=== PATIENT | male | born 1955 | race Hispanic/Latino ===

== ENCOUNTER → 2017-04-14 | Outpatient (CLI) | payer OTHER ==
[~2017-04-14] MED LIST: REGADENOSON 0.4 MG/5 ML PF SYG IVP SCH
== END | disposition home or self-care (01) ==
LOC: SHCH 09:33
PROVIDERS: ATTEND Internal Medicine Cardiovascular Disease
DX: I25.10 Atherosclerotic heart disease of native coronary artery without angina pectoris (principal); I10 Essential (primary) hypertension
CPT/HCPCS: 78452; 93017; 96374; A9500 ×2; J2785

== ENCOUNTER → 2020-06-12 | Outpatient (CLI) | payer MEDICARE | END | disposition home or self-care (01) | LOC: SHCH 13:30 | PROVIDERS: ATTEND Internal Medicine Cardiovascular Disease | DX: I87.2 Venous insufficiency (chronic) (peripheral) (principal) | CPT/HCPCS: 93970 ==

== ENCOUNTER → 2021-06-11 | Outpatient (CLI) | payer MEDICARE | END | disposition home or self-care (01) | LOC: SHCH 08:21 | PROVIDERS: ATTEND Internal Medicine Cardiovascular Disease | DX: I25.709 Atherosclerosis of coronary artery bypass graft(s), unspecified, with unspecified angina pectoris (principal) | CPT/HCPCS: 78452; 93017; 96374; A9500 ×2; J2785 ==

== ENCOUNTER → 2022-04-16 | Outpatient (CLI) | payer MEDICARE ==
[2022-04-16 16:44] LABS: ALBUMIN 3.7 g/dL (3.5-5.0); TOTAL PROTEIN, SERUM 7.3 g/dL (6.0-8.3)
== END | disposition home or self-care (01) ==
LOC: LAB 13:54
PROVIDERS: ATTEND Physician Assistant
DX: I10 Essential (primary) hypertension (principal)
CPT/HCPCS: 36415; 80053

== ENCOUNTER → 2022-05-08 | Outpatient (CLI) | payer MEDICARE ==
[~2022-05-08] MED LIST changes: +IOHEXOL 350 MG/ML 100ML INFUS..BTL IV ONE; +METOPROLOL TARTRATE 1 MG/ML 5ML VIAL IV ONE; -REGADENOSON 0.4 MG/5 ML PF SYG IVP SCH
== END | disposition home or self-care (01) ==
LOC: RAH 10:26
PROVIDERS: ATTEND Internal Medicine Cardiovascular Disease
DX: I25.810 Atherosclerosis of coronary artery bypass graft(s) without angina pectoris (principal)
CPT/HCPCS: 75574; J3490; Q9967

== ENCOUNTER 2024-12-28 18:37 | Observation (INO) | payer MEDICARE ==
[~2024-12-28] VITALS: Ht 185.4 cm; Wt 110.7 kg
--- NOTE | 2024-12-28 19:05 | ERN ---
ED Note History of Present Illness Stated Complaint: SENT BY PCP Chief Complaint: Shortness of Breath Time Seen by MD: 18:42 Time Seen by Midlevel: 18:42 Dictation: The patient is a 69-year-old male with a history of arthritis, CABG, diabetes, CVA on Eliquis who presents to the emergency department for evaluation of atrial fibrillation with a RVR. Patient was seeing his primary doctor today for shortness of breath that has been going on for three days and nausea. Patient reports shortness of breath is worse with ambulation. Patient also reports abdominal bloating and constipation. He had last bowel movement today. Reports chills. Patient otherwise denies cough denies fevers. Allergies: Coded Allergies: Penicillins (Verified Allergy, 02/21/13) Past Medical History Past Medical History: Arthritis, Diabetes-Type II, High Cholesterol, Heart Disease, Hypertension, Kidney Stone Surgical History: CABG RN Note Reviewed/Agreed w/PFSH: Yes Review of System Dictation Constitutional: Negative for fever,chills, and weight loss Eyes: Negative for injury, pain,redness, and discharge ENT: Negative for injury,pain or swelling Cardiovascular: Negative for chest pain, palpitations, and edema Respiratory: Negative for cough, and wheezing, positive for shortness of breath Abdomen/GI: Negative for abdominal pain, vomiting, diarrhea, and constipation positive for nausea. Back: Negative for injury and pain : Negative for injury, bleeding and discharge MS/Extremity: Negative for injury and deformity Skin: Negative for rash, and discoloration Neuro: Negative for headache, weakness, numbness, tingling, and seizure Psych: Negative for suicide ideation, homicidal ideation, and hallucinations Initial Vital Sign VS Vital Signs Date Time Temp Pulse Resp B/P (MAP) Pulse Ox O2 Delivery O2 Flow Rate FiO2 12/28/24 18:40 97.5 90 18 159/86 97 Room Air 0 Physical Exam Dictation Vital Signs reviewed General Appearance: Alert, oriented x 3, mildly distress, well developed, nourished. Head and Face: non-traumatic. Eyes: PERRL, pink conjunctivas, eyelid no trauma, anterior chamber with arcus senilis. Ears: Pinnas intact and no signs of trauma or erythema ear canals clear and no discharge TM no erythema Nose: No discharge, no bleeding. Oropharynx: Mouth normal, tongue pink. pharynx clear,no erythema, tonsils no exudates, no abscesses noted, mucous membrane moist Neck: Supple, non-tender, no thyromegaly, no masses, no JVD, no bruits Breast:Deferred Chest:No tenderness, no crepitus, no paradoxical movement, no retractions Lungs:Clear, well-ventilated, symmetric, no rales, no wheezing, no rhonchi, no stridor, good breath sounds bilaterally Heart: Regular rate, regular rhythm, no murmur, no gallops Vascular: no peripheral edema, Abdomen: Soft, positive bowel sounds, nondistended, no guarding, nontender, no rebound, no masses no hepatomegaly, no splenomegaly, no Solares's sign, no hernias. Rectal: Deferred Genital: Deferred Neurological: Normal speech, motor function intact, sensory function intact Musculoskeletal: Neck nontender, full range of motion, back nontender, full range of motion, Extremities: nontender, full range of motion Skin: Color pink, dry, no turgor, no rash, no lacerations, no abrasions, no contusions. Lymphatic: Deferred Results (Laboratory/Radiology) Laboratory/Radiology Laboratory Tests Test 12/28/24 19:45 12/28/24 21:00 12/28/24 21:10 White Blood Count 8.6 K/uL (4.8-10.8) Red Blood Count 4.62 MIL/uL (4.50-6.20) Hemoglobin 13.2 g/dL (14.0-18.0) L Hematocrit 40.4 % (42-54) L Mean Corpuscular Volume 87.4 fL (79-99) Mean Corpuscular Hemoglobin 28.6 pg (27.0-33.0) Mean Corpuscular Hemoglobin Concent 32.7 g/dL (32.0-36.0) Red Cell Distribution Width 13.5 % (11.0-15.5) Platelet Count 276 K/uL (130-400) Mean Platelet Volume 9.6 fL (7.5-10.5) Immature Granulocyte % (Auto) 0.5 % (0-1) Neutrophils (%) (Auto) 62.2 % (40.0-77.0) Lymphocytes (%) (Auto) 26.3 % (21.0-51.0) Monocytes (%) (Auto) 8.2 % (3.0-13.0) Eosinophils (%) (Auto) 2.0 % (0.0-8.0) Basophils (%) (Auto) 0.8 % (0.0-5.0) Neutrophils # (Auto) 5.3 K/uL (1.8-7.7) Lymphocytes # (Auto) 2.3 K/uL (1.0-4.8) Monocytes # (Auto) 0.7 K/uL (0.1-1.0) Eosinophils # (Auto) 0.17 K/uL (0.00-0.70) Basophils # (Auto) 0.07 K/uL (0.00-0.20) Absolute Immature Granulocyte (auto 0.04 K/uL (0-1) Nucleated Red Blood Cells 0.0 % (0.0-0.19) Prothrombin Time 10.9 SEC (9.6-11.6) Prothromb Time International Ratio 1.03 (0.85-1.15) Activated Partial Thromboplast Time 31.6 SEC (26.3-35.5) Sodium Level 141 mmol/L (136-145) Potassium Level 4.3 mmol/L (3.5-5.1) Chloride Level 102 mmol/L (101-111) Carbon Dioxide Level 27 mmol/L (21-32) Blood Urea Nitrogen 34 mg/dL (7-18) H Creatinine 1.3 mg/dL (0.5-1.3) Glomerular Filtration Rate Calc 59 mL/min (>90) Random Glucose 243 mg/dL (70-105) H Total Calcium 8.7 mg/dL (8.5-10.1) Magnesium Level 1.90 mg/dL (1.80-2.40) Total Creatine Kinase 65 U/L (21-232) Troponin I High Sensitivity 11 ng/L (4-75) B-Type Natriuretic Peptide 89 pg/mL (0-100) Lipase 18 U/L (16-77) Influenza Type A Antigen Negative For Type A Influenza Type B Antigen Negative For Type B SARS-CoV-2 Antigen (Rapid) PRESUMPTIVE NEGATIVE Urine Color LIGHT-YELLOW (YELLOW) Urine Appearance CLEAR (CLEAR) Urine pH 5.5 (5.0-8.0) Urine Specific [place] 1.023 (1.001-1.031) Urine Protein 10 mg/dL (NEGATIVE) H Urine Glucose (UA) >=1000 mg/dL (NEGATIVE) H Urine Ketones NEGATIVE mg/dL (NEGATIVE) Urine Occult Blood NEGATIVE (NEGATIVE) Urine Nitrate NEGATIVE (NEGATIVE) Urine Bilirubin NEGATIVE mg/dL (NEGATIVE) Urine Urobilinogen 0.2 mg/dL (0.2-1.0) Urine Leukocyte Esterase NEGATIVE Hailey/uL Urine RBC 0-1 /HPF (0-1) Urine WBC 2-5 /HPF (0-1) H Urine Bacteria RARE /HPF (None Seen) PATIENT: NAYELI AVILEZ MR#: [id number] : 1955 SEX: M AGE: 69 LOCATION: [facility] ORDER 190 STATUS: [facility] REPORT#: [id number] SERVICE 53 REASON: sob ORDERING PHYSICIAN: NEELAM COLUNGA [employer] PROCEDURE: CXR1VW - CHEST 1VW EXAM: CR Chest, 1 view CLINICAL HISTORY: Shortness of breath. COMPARISON: None provided. FINDINGS: Mild cardiomegaly. Status poststernotomy. No focal consolidation, effusion, or pneumothorax. Mild atherosclerotic aorta. No acute osseous abnormality. IMPRESSION: Mild cardiomegaly. Status poststernotomy. No focal consolidation, effusion, or pneumothorax. /[place] REASON: sob ORDERING PHYSICIAN: NEELAM COLUNGA COUN[employer]ER PROCEDURE: ABD 1VW - ABD 1VW EXAM: CR Abdomen, 2 views. CLINICAL HISTORY: Shortness of breath. COMPARISON: None provided. FINDINGS: Nonobstructed nonspecific bowel gas pattern. Moderate constipation. No free air evident. No abnormal calcification. No aggressive appearing osseous lesion. IMPRESSION: No acute process. Moderate constipation. /[place] Labs Reviewed?: Yes EKG: (+) rhythm (Patient's rhythm) EKG Comment: Date:12/28/2024 Time:1845 Ventricular rate:94 IA interval:202 QRS duration:105 QT/QTc:356/444 EKG interpretation: Sinus rhythm Reviewed by ED Attending no STEMI ED Course ED Course Orders Procedure Category Date Status Time 12 Lead Ekg Tracing- EKG 12/28/24 Logged Technical 18:45 Cbc With Differential LAB 12/28/24 Complete 18:54 Chest 1vw RAD 12/28/24 Resulted 18:54 Magnesium LAB 12/28/24 Complete 18:54 Creatine Kinase, Total LAB 12/28/24 Complete 18:54 Troponin I High LAB 12/28/24 Complete Sensitivity 18:54 Basic Metabolic Panel LAB 12/28/24 Complete 18:54 Lipase LAB 12/28/24 Complete 18:54 B-Type Natriuretic LAB 12/28/24 Complete Peptide 18:54 Abd 1vw RAD 12/28/24 Resulted 18:54 Covid19 (Sars Antigen LAB 12/28/24 Complete Rapid) 18:54 Influenza Type A & B, LAB 12/28/24 Complete Rapid 18:54 Pt And Ptt LAB 12/28/24 Complete 18:54 Urinalysis Profile LAB 12/28/24 Complete 19:03 Edm Admit Bridge Order ADM 12/28/24 Transmitted 22:24 Acetaminophen 325 Tab PHA 12/29/24 Logged (Tylenol 325mg Tab 00:00 Current Medications Medications (Trade) Dose Ordered Sig/Jean Route PRN Reason Start Time Stop Time Status Last Admin Dose Admin Acetaminophen (TYLenol 325MG TAB) 650 mg ONCE ONCE PO 12/29/24 00:00 12/29/24 00:01 UNV Vital Signs Date Time Temp Pulse Resp B/P (MAP) Pulse Ox O2 Delivery O2 Flow Rate FiO2 12/28/24 18:40 97.5 90 18 159/86 97 Room Air 0 Medical Decision Making MDM MDM: The patient is a 69-year-old male with a history of arthritis, CABG, diabetes, CVA on Eliquis who presents to the emergency department for evaluation of atrial fibrillation with a RVR. Patient was seeing his primary doctor today for shortness of breath that has been going on for three days and nausea. Patient reports shortness of breath is worse with ambulation. Patient also reports abdominal bloating and constipation. He had last bowel movement today. Reports chills. Patient otherwise denies cough denies fevers. CBC showed no leukocytosis, mild normocytic anemia, chemistry showed elevated blood glucose, negative troponin, negative BNP, negative lipase EKG here showed sinus rhythm but patient had an EKG brought in from primary doctor where he was seen to be in AFib RVR at a rate of 128 for this reason we will admit patient for further evaluation and management. Differential diagnosis: Tachyarrhythmia, dehydration, ACS, pneumonia, URI Comorbidities: CAD, CVA, arthritis, diabetes, hyperlipidemia, cholecystectomy Tests considered and not ordered secondary to shared decision making include: none Previous outside records reviewed: none Risk of complication and/or morbidity or mortality of patient management: The patient meets criteria for admission. Need for emergency major/minor surgery: No There are no social concerns with this patient. I independently interpreted the tests I ordered (labs, urinalysis, etc.). I discussed the case with the hospitalist for admission. Mariama JOSUÉ who accepts admission I discussed the case with the following specialists: none. Historian: [email or web address]. I independently interpreted imaging studies and EKGs that I ordered (US, CT, XR, EKG, etc.). External chart review: none. Medical management and examination interpretation discussions were had by me with other qualified healthcare professionals as indicated for the patient's care. DX & DISP Disposition: Inpatient Decision to Admit Date: Dec 28, 2024 Decision to Admit Time: 22:29 Departure Impression: Primary Impression: Paroxysmal A-fib Additional Impressions: Dyspnea on exertion, Uncontrolled diabetes mellitus, Constipation Condition: Stable Referrals: NELL OVERTON (PCP) I have reviewed the case, and I agree with, Diagnosis and Plan NEELAM COLUNGA Dec 28, 2024 19:05
[2024-12-28 19:59] LABS: IMMATURE GRANULOCYTE ABSOLUTE 0.04 K/uL (0-1); NUCLEATED RED BLOOD CELLS 0.0 % (0.0-0.19); PLATELET COUNT (AUTO) 276 K/uL (130-400); RED BLOOD CELL COUNT(AUTO) 4.62 MIL/uL (4.50-6.20); RED CELL DISTRIBUTION WIDTH 13.5 % (11.0-15.5); WHITE BLOOD COUNT (AUTO) 8.6 K/uL (4.8-10.8)
[2024-12-28 20:07] LABS: CREATININE 1.3 mg/dL (0.5-1.3); GLOMERULAR FILTR. RATE CALC 59.0 mL/min (>90); GLUCOSE,RANDOM 243.0 mg/dL (70-105); SODIUM SERUM 141.0 mmol/L (136-145); UREA NITROGEN, BLOOD 34.0 mg/dL (7-18)
[2024-12-28 20:09] LABS: INR 1.03 (0.85-1.15)
[2024-12-28 20:12] LABS: CREATINE KINASE, TOTAL 65.0 U/L (21-232)
[2024-12-28 21:21] LABS: COVID19 (SARS ANTIGEN RAPID) PRESUMPTIVE NEGATIVE (NEGATIVE); INFLUENZA TYPE A Negative For Type A (NEGATIVE); INFLUENZA TYPE B Negative For Type B (NEGATIVE)
[2024-12-28 21:22] LABS: APPEARANCE,URINE CLEAR (CLEAR); GLUCOSE, URINE (UA) >=1000 mg/dL (NEGATIVE); LEUKOCYTE ESTERASE ,URINE NEGATIVE Leu/uL (NEGATIVE); NITRATE,URINE NEGATIVE (NEGATIVE); OCCULT BLOOD,URINE NEGATIVE (NEGATIVE)
[2024-12-28 21:23] LABS: ADD UA MICROSCOPIC YES
--- NOTE | 2024-12-28 23:32 | HP ---
[facility] Date of Service: Dec 28, 2024 Time of Service: 23:32 PCP: Justin Zabala HISTORY OF PRESENT ILLNESS: This is a 69-year-old male with past medical history of atrial fibrillation on Eliquis, arthritis, coronary artery disease with CABG x5, hypertension, CVA, diabetes, hyperlipidemia and obstructive sleep apnea non compliant with CPAP therapy who presented to the ED for evaluation of atrial fibrillation with RVR HR 133 at the clinic.As per patient he was seen by his PCP todayfor shortness of breath and an EKG was done and was found out that HR was 133 and was advised to come tot he ED for evaluation.Patient reports he has been short of breath for the past 3 days and he also attended physical therapy and he gets short of breath easily on minimal exertion,and he feels his hands are swollen and feet are also swollen.Patient also reports of having constipation and his last bowel movement is today. Seen and examined patient in the ER awake,alert and coherent.Patient denies fever,chills,cough,chest pain,palpitation,nausea and vomiting. Latest vital signs temperature 98.1, heart rate 70, blood pressure 188/95 saturation 98% on room air. Labs: Hemoglobin 13, hematocrit 40 platelet count 276. BUN 34, creatinine 1.3, GFR 59 glucose 243 troponin 11 lipase 18 BNP 89. Influenza type a and B negative SARS COVID negative. ECG result revealed sinus rhythm heart rate 94. Chest x-ray result revealed mild cardiomegaly. Status post sternotomy. No focal consolidation, effusion or pneumothorax. While in the ER patient received Tylenol 650 mg p.o.. ER called and recommended to admit the patient. REVIEW OF SYSTEMS CONSTITUTIONAL: Denies fevers, chills, or night sweats. No unintentional weight loss reported. NEUROLOGICAL: Denies headache, amaurosis fugax, motor weakness, sensory deficit, vertigo/spinning sensation, gait abnormalities, or tremors. ENT: No hearing loss, otalgia, otorrhea, rhinitis, rhinorrhea, hoarseness, or sore throat. CARDIOVASCULAR: Complaints of dyspnea on exertion Denies any exertional angina orthopnea, paroxysmal nocturnal dyspnea, palpitations, life-threatening arrhythmias, claudication. PULMONARY: Complains of shortness of breaths Denies cough, phlegm/sputum, hemoptysis, pleuritic chest pain. SLEEP: Denies morning headaches, daytime somnolence or napping. Denies difficulty falling asleep, staying asleep, waking from sleep. Denies knowledge of snoring. GASTROINTESTINAL: Denies any type of dysphagia to either liquids or solids. Denies nausea, vomiting, pyrosis, early satiety, abdominal pain, diarrhea, constipation, or changes in stool consistency or caliber. Denies coffee-ground emesis, hematemesis, hematochezia, or melanotic stools. GENITOURINARY: Denies frequency, urgency, nocturia, hematuria or incontinence (Storage/Irritative symptoms.) Low urinary stream, straining to void, urinary intermittency or hesitancy, splitting of the voiding stream, terminal dribbling. ENDOCRINOLOGIC: Denies polyuria, polydipsia, polyphagia or heat/cold intolerances. HEMATOLOGIC: Denies thrombophilia/previous clots, or coagulopathy/bleeding disorders. ONCOLOGIC: Denies personal history of malignancy. DERMATOLOGIC: Denies rashes or pruritus. PSYCHIATRIC: Denies any suicidal or homicidal ideation. Denies hallucinations. PAST MEDICAL HISTORY: [ atrial fibrillation on Eliquis, arthritis, coronary artery disease with CABG x5, hypertension, CVA, diabetes, hyperlipidemia and obstructive sleep apnea non compliant with CPAP therapy ] PAST SURGICAL HISTORY: [CABG x5 ] PAST SOCIAL HISTORY: [ Patient lives alone. Patient denies alcohol tobacco and recreational drug use ] FAMILY HISTORY: [ Noncontributory ] Coded Allergies: Penicillins (Verified Allergy, 02/21/13) PHYSICAL EXAM GENERAL APPEARANCE: The patient is awake, alert, and oriented, in no acute cardiopulmonary distress. NEUROLOGICAL: Cranial nerves II-XII grossly intact. Motor is 5/5 in bilateral upper and lower extremities proximal to distal. No sensory deficits. HEENT: Face is symmetric. Pupils are equal and reactive. Extraocular movements are intact. NECK: Supple. No JVD. No thyromegaly. No submental, submandibular, pre- /postauricular, occipital or supraclavicular lymphadenopathy. CHEST: Normal chest expansion. No Telemetry. LUNGS: Absence of any rales, rhonchi or any wheezing. CARDIOVASCULAR: Regular. S1 and S2 normal. No appreciable rubs, murmurs or gallops. ABDOMEN: Soft, nontender, and nondistended. There is no rebound, voluntary guarding, or rigidity. : Deferred. No Romeo. EXTREMITIES: Non-edematous and not cyanotic. No clubbing. Good capillary refill. SKIN: No skin breakdown. Vital Sign (Last 24 Hours) 12/28/24 18:40 Temp 97.5 Pulse 90 Resp 18 B/P (MAP) 159/86 Pulse Ox 97 O2 Delivery Room Air O2 Flow Rate 0 LABS: Laboratory: Test 12/28/24 21:10 12/28/24 21:00 12/28/24 19:45 Range/Units Urine Color LIGHT-YELLOW YELLOW Urine Appearance CLEAR CLEAR Urine pH 5.5 5.0-8.0 Urine Specific [place] 1.023 1.001-1.031 Urine Protein 10 H NEGATIVE mg/dL Urine Glucose (UA) >=1000 H NEGATIVE mg/dL Urine Ketones NEGATIVE NEGATIVE mg/dL Urine Occult Blood NEGATIVE NEGATIVE Urine Nitrate NEGATIVE NEGATIVE Urine Bilirubin NEGATIVE NEGATIVE mg/dL Urine Urobilinogen 0.2 0.2-1.0 mg/dL Urine Leukocyte Esterase NEGATIVE NEGATIVE Hailey/uL Urine RBC 0-1 0-1 /HPF Urine WBC 2-5 H 0-1 /HPF Urine Bacteria RARE None Seen /HPF Influenza Type A Antigen Negative For Type A NEGATIVE Influenza Type B Antigen Negative For Type B NEGATIVE SARS-CoV-2 Antigen (Rapid) PRESUMPTIVE NEGATIVE NEGATIVE White Blood Count 8.6 4.8-10.8 K/uL Red Blood Count 4.62 4.50-6.20 MIL/uL Hemoglobin 13.2 L 14.0-18.0 g/dL Hematocrit 40.4 L 42-54 % Mean Corpuscular Volume 87.4 79-99 fL Mean Corpuscular Hemoglobin 28.6 27.0-33.0 pg Mean Corpuscular Hemoglobin Concent 32.7 32.0-36.0 g/dL Red Cell Distribution Width 13.5 11.0-15.5 % Platelet Count 276 130-400 K/uL Mean Platelet Volume 9.6 7.5-10.5 fL Immature Granulocyte % (Auto) 0.5 0-1 % Neutrophils (%) (Auto) 62.2 40.0-77.0 % Lymphocytes (%) (Auto) 26.3 21.0-51.0 % Monocytes (%) (Auto) 8.2 3.0-13.0 % Eosinophils (%) (Auto) 2.0 0.0-8.0 % Basophils (%) (Auto) 0.8 0.0-5.0 % Neutrophils # (Auto) 5.3 1.8-7.7 K/uL Lymphocytes # (Auto) 2.3 1.0-4.8 K/uL Monocytes # (Auto) 0.7 0.1-1.0 K/uL Eosinophils # (Auto) 0.17 0.00-0.70 K/uL Basophils # (Auto) 0.07 0.00-0.20 K/uL Absolute Immature Granulocyte (auto 0.04 0-1 K/uL Nucleated Red Blood Cells 0.0 0.0-0.19 % Prothrombin Time 10.9 9.6-11.6 SEC Prothromb Time International Ratio 1.03 0.85-1.15 Activated Partial Thromboplast Time 31.6 26.3-35.5 SEC Sodium Level 141 136-145 mmol/L Potassium Level 4.3 3.5-5.1 mmol/L Chloride Level 102 101-111 mmol/L Carbon Dioxide Level 27 21-32 mmol/L Blood Urea Nitrogen 34 H 7-18 mg/dL Creatinine 1.3 0.5-1.3 mg/dL Glomerular Filtration Rate Calc 59 >90 mL/min Random Glucose 243 H 70-105 mg/dL Total Calcium 8.7 8.5-10.1 mg/dL Magnesium Level 1.90 1.80-2.40 mg/dL Total Creatine Kinase 65 21-232 U/L Troponin I High Sensitivity 11 4-75 ng/L B-Type Natriuretic Peptide 89 0-100 pg/mL Lipase 18 16-77 U/L DIAGNOSTICS / RADIOLOGY: [ ] ASSESSMENT: Paroxysmal atrial fibrillation on Eliquis POA improved Persistent dyspnea on exertion POA Uncontrolled diabetes POA Acute on chronic kidney disease POA Normocytic normochromic anemia POA Obesity POA Hypertension POA Hyperlipidemia POA Obstructive sleep apnea noncompliant with CPAP therapy POA PLAN: We will admit patient in medical telemetry We will start on heart healthy diet We will start on famotidine 20 mg p.o. daily for GI prophylaxis We will replace electrolytes as needed per protocol We will start on insulin sliding scale AC & HS with hypoglycemia protocol We will add prn medication for fever,pain,cough , nausea and vomiting Home meds once were reconciled We will request for echocardiogram We will request labs in am Further orders to follow depending on above results Case discussed with attending physician and came up with above treatment and plan of care. ADVANCED CARE PLANNING 1. Which of the following were discussed? Hospice Care - No Therapeutic options - Yes Advance Directives - No Other discussions - 2. Discussed with who? Patient and sister Joann 3. Voluntary nature of this service was explained to the patient? Yes 4. Amount of time spent - _23min 5. Reviewed by Physician? (if this service was performed by NPP) Yes Patient seen and examined by me. Agree with note by DOCUMENTATION ENGINEER SEE ADDITIONAL ORDERS PER CHART DISCUSSED WITH NURSING STAFF QUAN BRAY RN SANE Dec 28, 2024 23:32
--- NOTE | 2024-12-28 23:36 | HMCIMG ---
EXAM: CR Chest, 1 view CLINICAL HISTORY: Shortness of breath. COMPARISON: None provided. FINDINGS: Mild cardiomegaly. Status poststernotomy. No focal consolidation, effusion, or pneumothorax. Mild atherosclerotic aorta. No acute osseous abnormality. IMPRESSION: Mild cardiomegaly. Status poststernotomy. No focal consolidation, effusion, or pneumothorax. /[place]
--- NOTE | 2024-12-28 23:37 | HMCIMG ---
EXAM: CR Abdomen, 2 views. CLINICAL HISTORY: Shortness of breath. COMPARISON: None provided. FINDINGS: Nonobstructed nonspecific bowel gas pattern. Moderate constipation. No free air evident. No abnormal calcification. No aggressive appearing osseous lesion. IMPRESSION: No acute process. Moderate constipation. /[place]
[2024-12-29] VITALS (11 sets, daily range): BP systolic 146–155; BP diastolic 72–80; PULSE 63–86; RESP 16–23; TEMP 97.6–97.8; O2SAT 97–100
[2024-12-29] MEDS ORDERED: HYDR-4068 PO (02:28)
[2024-12-29] MEDS ORDERED: CHOL200026 PO (02:28)
[2024-12-29] MEDS ORDERED: METO50TA18 PO (02:28)
[2024-12-29] MEDS ORDERED: NIFE-39 PO (02:28)
[2024-12-29] MEDS ORDERED: METF-446 PO (02:28)
[2024-12-29] MEDS ORDERED: LISI40TA15 PO (02:28)
[2024-12-29] MEDS ORDERED: MELO-108 PO (02:28)
[2024-12-29] MEDS ORDERED: BUME1TAB6 PO (02:28)
[2024-12-29] MEDS ORDERED: DAPA10TA PO (02:28)
[2024-12-29] MEDS ORDERED: LORA10TA7 PO (02:28)
[2024-12-29] MEDS ORDERED: CLOP75TA32 PO (02:28)
[2024-12-29] MEDS ORDERED: ATOR40TA71 PO (02:28)
[2024-12-29] MEDS ORDERED: APIX5TAB PO (02:28)
[2024-12-29] MEDS ORDERED: GABA300S3 PO (02:28)
[2024-12-29] MEDS ORDERED: MAGNESIUM 2GM PREMIX 50ML 50 ML IV PRN (03:00)
[2024-12-29] MEDS ORDERED: PoTASSium chl 10% ELIXIR 20MEQ 20 MEQ/15 ML UDCUP PO PRN (03:00)
[2024-12-29] MEDS ORDERED: DEXTROSE 50%-WATER 50 ML DISP.SYRIN IV PRN (03:00)
[2024-12-29] MEDS ORDERED: PoTASSium chloRIDE 20MEQ ER 20 MEQ ERTAB PO PRN (03:00)
[2024-12-29] MEDS ORDERED: GLUCAGON 1MG KIT 1 MG ML IM PRN (03:00)
[2024-12-29 07:21] LABS: IMMATURE GRANULOCYTE ABSOLUTE 0.08 K/uL (0-1); NUCLEATED RED BLOOD CELLS 0.0 % (0.0-0.19); PLATELET COUNT (AUTO) 240 K/uL (130-400); RED BLOOD CELL COUNT(AUTO) 4.52 MIL/uL (4.50-6.20); RED CELL DISTRIBUTION WIDTH 13.5 % (11.0-15.5); WHITE BLOOD COUNT (AUTO) 8.1 K/uL (4.8-10.8)
[2024-12-29 07:43] LABS: ASPARTATE AMINOTRANSFERASE 12.0 U/L (10-37); CREATININE 1.0 mg/dL (0.5-1.3); GLOMERULAR FILTR. RATE CALC 80.0 mL/min (>90); GLUCOSE,RANDOM 193.0 mg/dL (70-105); SODIUM SERUM 141.0 mmol/L (136-145); TOTAL PROTEIN, SERUM 6.6 g/dL (6.0-8.3); UREA NITROGEN, BLOOD 32.0 mg/dL (7-18)
[2024-12-29 07:46] LABS: ERYTHROCYTE SEDIMENTATION RATE 19 MM/HR (0-20)
[2024-12-29] MEDS: (Cholecalciferol (Vitamin D3) (Vitamin D3) 1 TAB) PO SCH (09:00)
[2024-12-29] MEDS: FAMOTIDINE 20MG TAB PO SCH (09:10)
[2024-12-29] MEDS: GABAPENTIN 300 MG CAPSULE PO SCH (09:11)
[2024-12-29] MEDS: LORATAdine 10 mg 10 MG TABLET PO SCH (09:13)
[2024-12-29] MEDS: LISINOPRIL 40 MG TABLET PO SCH (09:14)
[2024-12-29] MEDS: BUMETANIDE 1 MG TAB PO SCH (09:14)
--- NOTE | 2024-12-29 09:20 | PN ---
[facility] PROGRESS NOTE Date of Service: Dec 29, 2024 Time of Service: 09:18 SUBJECTIVE: 12/29 power chart reviewed, vital signs, laboratory tests, imaging tests and medications reviewed. The patient has been seen and examined, comfortable in bed, alert oriented x3, denies chest pain, feels less short of breath, no nausea, no vomiting, no abdominal discomfort. Had a good bowel movement yesterday. Gas. Blood pressure 167/68, afebrile, saturating 97% 2 L nasal cannula, hemoglobin 12.8, hematocrit 39.9, WBC 8.1, platelet count of 240, CMP unremarkable serology test negative, x-ray of the abdomen no acute process, moderate constipation. Chest x-ray showing mild cardiomegaly, status post sternotomy, no focal consolidation effusion or pneumothorax. Echocardiogram pending. at bedside during my visit, updated, all questions answered. Agreed and understood the information provided. REVIEW OF SYSTEMS CONSTITUTIONAL: Denies fevers, chills, or night sweats. No unintentional weight loss reported. NEUROLOGICAL: Denies headache, amaurosis fugax, motor weakness, sensory defi cit, vertigo/spinning sensation, gait abnormalities, or tremors. ENT: No hearing loss, otalgia, otorrhea, rhinitis, rhinorrhea, hoarseness, or sore throat. CARDIOVASCULAR: Complaints of dyspnea on exertion Denies any exertional angina orthopnea, paroxysmal nocturnal dyspnea, palpitations, life-threatening arrhythmias, claudication. PULMONARY: Complains of shortness of breaths Denies cough, phlegm/sputum, hemoptysis, pleuritic chest pain. SLEEP: Denies morning headaches, daytime somnolence or napping. Denies difficulty falling asleep, staying asleep, waking from sleep. Denies knowledge of snoring. GASTROINTESTINAL: Denies any type of dysphagia to either liquids or solids. Denies nausea, vomiting, pyrosis, early satiety, abdominal pain, diarrhea, const ipation, or changes in stool consistency or caliber. Denies coffee-ground emesis, hematemesis, hematochezia, or melanotic stools. GENITOURINARY: Denies frequency, urgency, nocturia, hematuria or incontinence (Storage/Irritative symptoms.) Low urinary stream, straining to void, urinary intermittency or hesitancy, splitting of the voiding stream, terminal dribbling. ENDOCRINOLOGIC: Denies polyuria, polydipsia, polyphagia or heat/cold intolerances. HEMATOLOGIC: Denies thrombophilia/previous clots, or coagulopathy/bleeding disorders. ONCOLOGIC: Denies personal history of malignancy. DERMATOLOGIC: Denies rashes or pruritus. PSYCHIATRIC: Denies any suicidal or homicidal ideation. Denies hallucinations. PHYSICAL EXAM GENERAL APPEARANCE: The patient is awake, alert, and oriented, in no acute cardiopulmonary distress. NEUROLOGICAL: Cranial nerves II-XII grossly intact. Motor is 5/5 in bilateral upper and lower extremities proximal to distal. No sensory deficits. HEENT: Face is symmetric. Pupils are equal and reactive. Extraocular movements are intact. NECK: Supple. No JVD. No thyromegaly. No submental, submandibular, pre- /postauricular, occipital or supraclavicular lymphadenopathy. CHEST: Normal chest expansion. No Telemetry. LUNGS: Absence of any rales, rhonchi or any wheezing. CARDIOVASCULAR: Regular. S1 and S2 normal. No appreciable rubs, murmurs or gallops. ABDOMEN: Soft, nontender, and nondistended. There is no rebound, voluntary guarding, or rigidity. : Deferred. No Romeo. EXTREMITIES: Non-edematous and not cyanotic. No clubbing. Good capillary refill. SKIN: No skin breakdown. Vital Signs (last 8hr) Date Time Temp Pulse Resp B/P (MAP) Pulse Ox O2 Delivery O2 Flow Rate FiO2 12/29/24 07:25 97.5 81 22 167/68 97 Nasal Cannula* 2 28 12/29/24 07:17 80 20 N/Cannula Low lpm 2.0 12/29/24 07:15 80 20 12/29/24 05:57 98.1 85 23 167/67 97 Nasal Cannula* 2 28 12/29/24 04:42 86 23 N/Cannula Low lpm 3.0 32 12/29/24 02:07 98.1 70 18 188/95 98 Room Air* 0 21 LABS: Laboratory: Test 12/29/24 08:48 12/29/24 06:58 12/28/24 21:10 12/28/24 21:00 Range/Units Whole Blood Glucose 201 H 70-110 MG/DL White Blood Count 8.1 4.8-10.8 K/uL Red Blood Count 4.52 4.50-6.20 MIL/uL Hemoglobin 12.8 L 14.0-18.0 g/dL Hematocrit 39.9 L 42-54 % Mean Corpuscular Volume 88.3 79-99 fL Mean Corpuscular Hemoglobin 28.3 27.0-33.0 pg Mean Corpuscular Hemoglobin Concent 32.1 32.0-36.0 g/dL Red Cell Distribution Width 13.5 11.0-15.5 % Platelet Count 240 130-400 K/uL Mean Platelet Volume 9.7 7.5-10.5 fL Immature Granulocyte % (Auto) 1.0 0-1 % Neutrophils (%) (Auto) 60.9 40.0-77.0 % Lymphocytes (%) (Auto) 26.4 21.0-51.0 % Monocytes (%) (Auto) 9.2 3.0-13.0 % Eosinophils (%) (Auto) 1.8 0.0-8.0 % Basophils (%) (Auto) 0.7 0.0-5.0 % Neutrophils # (Auto) 4.9 1.8-7.7 K/uL Lymphocytes # (Auto) 2.1 1.0-4.8 K/uL Monocytes # (Auto) 0.8 0.1-1.0 K/uL Eosinophils # (Auto) 0.15 0.00-0.70 K/uL Basophils # (Auto) 0.06 0.00-0.20 K/uL Absolute Immature Granulocyte (auto 0.08 0-1 K/uL Nucleated Red Blood Cells 0.0 0.0-0.19 % Erythrocyte Sedimentation Rate 19 0-20 MM/HR D-Dimer Quantitative (PE/DVT) 363 0-500 ng/mL Sodium Level 141 136-145 mmol/L Potassium Level 3.9 3.5-5.1 mmol/L Chloride Level 105 101-111 mmol/L Carbon Dioxide Level 26 21-32 mmol/L Blood Urea Nitrogen 32 H 7-18 mg/dL Creatinine 1.0 0.5-1.3 mg/dL Glomerular Filtration Rate Calc 80 >90 mL/min Random Glucose 193 H 70-105 mg/dL Total Calcium 8.6 8.5-10.1 mg/dL Magnesium Level 2.10 1.80-2.40 mg/dL Total Bilirubin 0.6 0.2-1.0 mg/dL Aspartate Amino Transf (AST/SGOT) 12 10-37 U/L Alanine Aminotransferase (ALT/SGPT) 26 12-78 U/L Alkaline Phosphatase 73 50-136 U/L Troponin I High Sensitivity 45 4-75 ng/L Total Protein 6.6 6.0-8.3 g/dL Albumin 3.4 L 3.5-5.0 g/dL Thyroid Stimulating Hormone (TSH) 1.45 0.36-3.74 uIU/mL Urine Color LIGHT-YELLOW YELLOW Urine Appearance CLEAR CLEAR Urine pH 5.5 5.0-8.0 Urine Specific [place] 1.023 1.001-1.031 Urine Protein 10 H NEGATIVE mg/dL Urine Glucose (UA) >=1000 H NEGATIVE mg/dL Urine Ketones NEGATIVE NEGATIVE mg/dL Urine Occult Blood NEGATIVE NEGATIVE Urine Nitrate NEGATIVE NEGATIVE Urine Bilirubin NEGATIVE NEGATIVE mg/dL Urine Urobilinogen 0.2 0.2-1.0 mg/dL Urine Leukocyte Esterase NEGATIVE NEGATIVE Hailey/uL Urine RBC 0-1 0-1 /HPF Urine WBC 2-5 H 0-1 /HPF Urine Bacteria RARE None Seen /HPF Influenza Type A Antigen Negative For Type A NEGATIVE Influenza Type B Antigen Negative For Type B NEGATIVE SARS-CoV-2 Antigen (Rapid) PRESUMPTIVE NEGATIVE NEGATIVE Test 12/28/24 19:45 Range/Units Prothrombin Time 10.9 9.6-11.6 SEC Prothromb Time International Ratio 1.03 0.85-1.15 Activated Partial Thromboplast Time 31.6 26.3-35.5 SEC Total Creatine Kinase 65 21-232 U/L B-Type Natriuretic Peptide 89 0-100 pg/mL Lipase 18 16-77 U/L Current Medications Medications (Trade) Dose Ordered Sig/Jean Route PRN Reason Start Time Stop Time Status Last Admin Dose Admin Acetaminophen (TYLenol 325MG TAB) 650 mg Q4H PRN PO MILD PAIN (1-3) 12/29/24 03:00 01/28/25 02:59 Acetaminophen (TYLenol 325MG TAB) 650 mg Q6H PRN PO TEMPERATURE GREATER THAN 101.5 12/29/24 03:00 01/28/25 02:59 Acetaminophen/ Hydrocodone Bitart (NORco 10) 1 tab QIDP PRN PO PAIN LEVEL 4 TO 6 12/29/24 03:30 01/05/25 03:29 Albuterol (DUOneb) 1 udvial O0ABDEF IH 12/29/24 06:00 01/28/25 05:59 12/29/24 07:12 1 UDVIAL Apixaban (EliquIS) 5 mg BID PO 12/29/24 09:00 01/28/25 08:59 12/29/24 09:10 5 MG Atorvastatin Calcium (LIPItor 40MG) 40 mg DAILY PO 12/29/24 09:00 01/28/25 08:59 12/29/24 09:14 40 MG Bumetanide (Bumex 1mg Tab) 1 mg DAILY PO 12/29/24 09:00 01/28/25 08:59 12/29/24 09:14 1 MG Clopidogrel Bisulfate (plaVIX 75MG) 75 mg DAILY PO 12/29/24 09:00 01/28/25 08:59 12/29/24 09:13 75 MG Dextrose (D50w) 50 ml AD PRN IV HYPOGLYCEMIA PROTOCOL 12/29/24 03:00 01/28/25 02:59 Famotidine (Pepcid 20mg Tab) 20 mg DAILY PO 12/29/24 09:00 01/28/25 08:59 12/29/24 09:10 20 MG Gabapentin (NEURontin 300 MG CAP) 300 mg BID PO 12/29/24 09:00 01/28/25 08:59 12/29/24 09:11 300 MG Glucagon (Glucagon 1mg Kit) 1 mg AD PRN IM HYPOGLYCEMIA PROTOCOL 12/29/24 03:00 01/28/25 02:59 Home Med (Home Medication) DAILY PO 12/29/24 09:00 01/28/25 08:59 Insulin Human Regular (humuLIN R 100 UNIT/ML 3ML) INSULIN SLIDING SCAL... ACHS SQ 12/29/24 07:30 01/28/25 07:29 12/29/24 08:58 3 UNIT Lisinopril (Prinivil 40mg) 40 mg DAILY PO 12/29/24 09:00 01/28/25 08:59 12/29/24 09:14 40 MG Loratadine (LORATAdine 10 mg) 10 mg DAILY PO 12/29/24 09:00 01/28/25 08:59 12/29/24 09:13 10 MG Magnesium Sulfate 50 ml @ 0 mls/hr PROTOCOL PRN IV OTHER [SEE ORDER COMMENTS] 12/29/24 03:00 01/28/25 02:59 Metoprolol Tartrate (loprESSOR) 50 mg BID PO 12/29/24 09:00 01/28/25 08:59 12/29/24 09:13 50 MG Nifedipine (adALAT 30MG) 60 mg DAILY PO 12/29/24 09:00 01/28/25 08:59 12/29/24 09:12 60 MG Ondansetron HCl (zoFRAN 4MG INJ) 4 mg Q6H PRN IV NAUSEA/VOMITING 12/29/24 03:00 01/28/25 02:59 Potassium Chloride 100 ml @ 100 mls/hr AD PRN IV POTASSIUM PROTOCOL 12/29/24 03:00 01/28/25 02:59 Potassium Chloride (K-Dur/Klor-Con 20meq) 20 meq AD PRN PO POTASSIUM PROTOCOL 12/29/24 03:00 01/28/25 02:59 Potassium Chloride (KCl 10% Elixir 20meq/15ml) 20 meq AD PRN PO POTASSIUM PROTOCOL 12/29/24 03:00 01/28/25 02:59 DIAGNOSTICS / RADIOLOGY: [ ] ASSESSMENT: Paroxysmal atrial fibrillation on Eliquis POA improved Persistent dyspnea on exertion POA Uncontrolled diabetes POA Acute on chronic kidney disease POA Normocytic normochromic anemia POA Obesity POA Hypertension POA Hyperlipidemia POA Obstructive sleep apnea noncompliant with CPAP therapy POA PLAN: power chart reviewed, vital signs, laboratory tests, imaging tests and medications reviewed. The patient has been seen and examined, comfortable in bed, alert oriented x3, denies chest pain, feels less short of breath, no nausea, no vomiting, no abdominal discomfort. Had a good bowel movement yesterday. Gas. Blood pressure 167/68, afebrile, saturating 97% 2 L nasal cannula, hemoglobin 12.8, hematocrit 39.9, WBC 8.1, platelet count of 240, CMP unremarkable serology test negative, x-ray of the abdomen no acute process, moderate constipation. Chest x-ray showing mild cardiomegaly, status post sternotomy, no focal consolidation effusion or pneumothorax. Echocardiogram pending. at bedside during my visit, updated, all questions answered. Agreed and understood the information provided. NEURO: Minimize central acting medications as possible. Fall Precautions. Well lighted room through the day and minimize interruptions through the night to prevent acute delirium. PULMONARY: Supplemental 02 as needed BiPAP as necessary, for respiratory distress Titrate Fio2 to keep Spo2 > or = 90% DuoNebs and CPT as needed IS hourly while awake for pulmonary hygiene prn Out of bed to chair as tolerated Maintain aspiration precautions at all times CARDIOVASCULAR: Follow hemodynamics. Vital signs per facility protocol GI & NUTRITION: Continue nutritional support Aspirations precautions Prokinetic agents and laxatives as needed KIDNEYS & ELECTROLYTES: Strict monitoring of intake and output Daily weights Avoid nephrotoxic agents Monitor electrolytes and replace as needed Goal urine output of 30mL/hr or 0.5mL/kg/hr Medications to be dosed according to renal function. Avoid contrast if possible ENDOCRINE: Maintain blood glucose between 100-180 at all times. Insulin sliding scale for blood glucose management Hypoglycemia and hyperglycemia protocol in place INFECTIOUS DISEASE: Trend temperature, WBC and procalcitonin level Follow cultures, deescalate antibiotics as soon as possible. Panculture if new onset fever HEMATOLOGY & COAGULATION: Monitor H&H. Keep Hgb > 7 Transfuse 1 unit of PRBC for Hgb < 7 Transfuse 1 pack of platelets of platelets < 20, 000 Watch for any signs and symptoms of bleeding SKIN: Pressure ulcer prevention per facility protocol Specialty mattress as needed ORTHO/REHAB Continue PT/OT PRN: MEDICATIONS Tylenol 650 mg po every 4 hrs for fever zofran 4 mg IV every 6 hrs for n/v Hydralazine 5 mg IV every 4 hrs systolic pressure > 160 bowel regiment: lactulose 20 gm PO BID PRN constipation Supportive measures: Continue GI and DVT prophylaxis Disposition: Pending improvement in clinical condition All questions answered time spent: > 35 min CLAU COLES MD Dec 29, 2024 09:20
--- NOTE | 2024-12-29 09:53 | NUR ---
DCP:HOME Pt currently lives alone in his home. Pt states that he uses a cane and walker to ambulate. Pt denies having any home health or provider services. Pt states that she is able to complete ADLs independently. PCP is Dr. Chandler grossman and uses [facility] for any RX needs. At DC pt will want to go home and family can assist with transportation.
--- NOTE | 2024-12-29 18:52 | HMCSR ---
APPROVED REPORT EXAM: Two-dimensional and M-mode echocardiogram with Doppler and color Doppler. INDICATION ICD: R06.02 Shortness of breath 2D Dimensions RVDd 3.8 cm LVEF(%) 48.2 (>50%) LVED Vol(simp.) 134.0 mL IVSd 1.5 (0.7-1.1cm) FS(%) 24 % LVES Vol(simp.) 65.0 mL LVDd 5.1 (3.8-5.6cm) LA (2D) 3.7 (1.6-4.0cm) LVEF(%, simp.) 52 % PWd 1.3 (0.7-1.1cm) Ao Root(2D) 3.2 (2.0-3.7cm) LA ESV INDEX (BP) 34.69 mL/m2 IVSs 1.4 cm LVOT diam 2.3 (1.8-2.4cm) LVDs 3.9 (2.5-4.0cm) PWs 1.3 cm Deformation Strain Apical 4 -15.9 % Apical 2 -16.0 % Apical 3 -17.4 % Global Strain -16.4 % M-Mode Dimensions EPSS 0.5 cm LA (MM) 4.3 (1.6-4.0cm) Ao Root(MM) 4.0 (2.0-3.7cm) Aortic Valve AoV Vmax 1.5 m/s Ao Peak GR 8.5 mmHg LVOT Vmax 1.0 m/s AoV VTI 0.3 m Ao Mean GR 4.6 mmHg LVOT VTI 0.21 m SHANIQUE (VMAX) 2.98 cm2 SHANIQUE (VTI) 3.3 cm2 Mitral Valve MV E Vmax 101.3 cm/s DECEL Time 184 ms MV A Vmax 88.7 cm/s P 1/2 T 70 ms E/A ratio 1.1 MVA (PHT) 3.2 cm2 TDI E/E' Medial 24.4 E/E' Lateral 13.7 Medial E' Peak V 4.16 cm/s Lateral E' Peak V 7.38 cm/s Pulmonary Valve PV Vmax 1.6 m/s PV Mean GR 5.2 mmHg PV Peak GR 9.8 mmHg Tricuspid Valve TR Vmax 1.8 m/s RAP (EST) 8 mmHg RVSP 21.1 mmHg TR Peak GR 13.1 mmHg Left Ventricle The left ventricle is normal size. GLS -16.0% There is normal LV segmental wall motion. Moderate concentric left ventricular hypertrophy. LVEF is 50-55%. Increased E/E suggestive of increased left ventricular end diastolic pressure. Right Ventricle The right ventricle is normal size. The right ventricular systolic function is normal. Atria The left atrium is borderline dilated. The right atrium size is normal. Aortic Valve Aortic valve is trileaflet and opens well. Non coronary cusp leaflet is thickened. Trace aortic regurgitation is present. There is no aortic valvular stenosis. Mitral Valve The mitral valve is mildly thickened.Posterior mitral valve annular calcification noted. There is trace mitral valve regurgitation noted. There is no mitral valve stenosis. Tricuspid Valve The tricuspid valve is normal in structure. There is trace of tricuspid valve regurgitation noted. Pulmonic Valve Pulmonic valve is not well visualized. There is no pulmonic valvular regurgitation. Great Vessels The aortic root is normal in size. IVC is not well visualized. Pericardium There is no pericardial effusion. Other Information Quality : Adequate Conclusion The left ventricle is normal size. LVEF is 50-55% with no wall motion abnormalities. Moderate concentric left ventricular hypertrophy. Increased E/E suggestive of increased left ventricular end diastolic pressure. The right ventricular systolic function is normal. The left atrium is borderline dilated. No hemodynamically significant valvular abnormalities. No pericardial effusion.
[2024-12-30] VITALS (7 sets, daily range): BP systolic 147–173; BP diastolic 70–80; PULSE 61–71; RESP 14–20; TEMP 96.1–98.4; O2SAT 96–97
--- NOTE | 2024-12-30 01:33 | HMCIMG ---
STUDY: VENOUS DOPPLER ULTRASOUND OF BOTH LOWER EXTREMITIES CLINICAL INFORMATION: Rule out deep venous thrombosis. TECHNIQUE: Duplex Doppler ultrasound of the deep venous systems of both lower extremities was performed using grayscale imaging, color Doppler, and spectral waveform analysis. COMPARISON: None provided. FINDINGS: The deep venous systems of both lower extremities, including the common femoral, femoral, popliteal, and visualized calf veins, are patent and fully compressible. Normal color filling and spontaneous, phasic, and augmentable venous Doppler waveforms are demonstrated bilaterally. No intraluminal echogenic thrombus is identified. No significant superficial venous thrombosis is seen in the visualized superficial venous segments. IMPRESSION: * No sonographic evidence of deep venous thrombosis in either lower extremity. /[place]
--- NOTE | 2024-12-30 10:15 | EKG ---
[facility] Test Date: 2024-12-28 Test Time: 18:45:26 Pat Name: NAYELI AVILEZ Department: [facility] Room: 417 1 Gender: M Manager Generation: [id number] : 1955 Requested By: SKYLER FIGUEROA Order Number: [id number] Reading MD: Prince Shipman Measurements Intervals [place] Rate: 94 P: 8 ID: [id number] QRS: -5 QRSD: 105 T: 102 QT: 356 QTc: 444 Interpretive Statements Sinus rhythm No previous ECG available for comparison Electronically Signed On 12-30-2024 18:58:58 SOCIAL WORK JOB TITLES by Prince Shipman Please click the below link to view image of tracing.
--- NOTE | 2024-12-30 13:46 | DS ---
Discharge Summary Hospital Course Summary: Date of service 12/30/2024 The patient admitted to the hospital December 28, 2024 with the following history of present illness: This is a 69-year-old male with past medical history of atrial fibrillation on Eliquis, arthritis, coronary artery disease with CABG x5, hypertension, CVA, diabetes, hyperlipidemia and obstructive sleep apnea non compliant with CPAP therapy who presented to the ED for evaluation of atrial fibrillation with RVR HR 133 at the clinic.As per patient he was seen by his PCP todayfor shortness of breath and an EKG was done and was found out that HR was 133 and was advised to come tot he ED for evaluation.Patient reports he has been short of breath for the past 3 days and he also attended physical therapy and he gets short of breath easily on minimal exertion,and he feels his hands are swollen and feet are also swollen.Patient also reports of having constipation and his last bowel movement is today. Seen and examined patient in the ER awake,alert and coherent.Patient denies fever,chills,cough,chest pain,palpitation,nausea and vomiting. Latest vital signs temperature 98.1, heart rate 70, blood pressure 188/95 saturation 98% on room air. Labs: Hemoglobin 13, hematocrit 40 platelet count 276. BUN 34, creatinine 1.3, GFR 59 glucose 243 troponin 11 lipase 18 BNP 89. Influenza type a and B negative SARS COVID negative. ECG result revealed sinus rhythm heart rate 94. Chest x-ray result revealed mild cardiomegaly. Status post sternotomy. No focal consolidation, effusion or pneumothorax. While in the ER patient received Tylenol 650 mg p.o.. ER called and recommended to admit the patient. HOSPITAL COURSE 12/29 power chart reviewed, vital signs, laboratory tests, imaging tests and medications reviewed. The patient has been seen and examined, comfortable in bed, alert oriented x3, denies chest pain, feels less short of breath, no nausea, no vomiting, no abdominal discomfort. Had a good bowel movement yesterday. Gas. Blood pressure 167/68, afebrile, saturating 97% 2 L nasal cannula, hemoglobin 12.8, hematocrit 39.9, WBC 8.1, platelet count of 240, CMP unremarkable serology test negative, x-ray of the abdomen no acute process, moderate constipation. Chest x-ray showing mild cardiomegaly, status post sternotomy, no focal consolidation effusion or pneumothorax. Echocardiogram p ending. at bedside during my visit, updated, all questions answered. Agreed and understood the information provided. 12/30 the patient is seen and examined at bedside, discussed with the RN, no acute events overnight, patient alert oriented x3, hemodynamically stable, no episodes of arrhythmias detected on telemetry, he would like to be discharged home, he denies dizziness, no blurry vision, no chest pain, no shortness a breath, no palpitations, no cough, no nausea, no vomiting, no abdominal pain, t olerating diet well, passing gas, moving bowels, no melena, no hematochezia, no hematemesis, no hematuria, no dysuria. at bedside during my visit. Echocardiogram done, reported as follows: Conclusion The left ventricle is normal size. LVEF is 50-55% with no wall motion abnormalities. Moderate concentric left ventricular hypertrophy. Increased E/E suggestive of increased left ventricular end diastolic pressure. The right ventricular systolic function is normal. The left atrium is borderline dilated. No hemodynamically significant valvular abnormalities. No pericardial effusion. Doppler lower extremities: STUDY: VENOUS DOPPLER ULTRASOUND OF BOTH LOWER EXTREMITIES CLINICAL INFORMATION: Rule out deep venous thrombosis. TECHNIQUE: Duplex Doppler ultrasound of the deep venous systems of both lower extremities was performed using grayscale imaging, color Doppler, and spectral waveform analysis. COMPARISON: None provided. FINDINGS: The deep venous systems of both lower extremities, including the common femoral, femoral, popliteal, and visualized calf veins, are patent and fully compressible. Normal color filling and spontaneous, phasic, and augmentable venous Doppler waveforms are demonstrated bilaterally. No intraluminal echogenic thrombus is identified. No significant superficial venous thrombosis is seen in the visualized superficial venous segments. IMPRESSION: * No sonographic evidence of deep venous thrombosis in either lower extremity. PHYSICAL EXAM GENERAL APPEARANCE: The patient is awake, alert, and oriented, in no acute cardiopulmonary distress. NEUROLOGICAL: Cranial nerves II-XII grossly intact. Motor is 5/5 in bilateral upper and lower extremities proximal to distal. No sensory deficits. HEENT: Face is symmetric. Pupils are equal and reactive. Extraocular movements are intact. NECK: Supple. No JVD. No thyromegaly. No submental, submandibular, pre- /postauricular, occipital or supraclavicular lymphadenopathy. CHEST: Normal chest expansion. No Telemetry. LUNGS: Absence of any rales, rhonchi or any wheezing. CARDIOVASCULAR: Regular. S1 and S2 normal. No appreciable rubs, murmurs or gallops. ABDOMEN: Soft, nontender, and nondistended. There is no rebound, voluntary guarding, or rigidity. : Deferred. No Romeo. EXTREMITIES: Non-edematous and not cyanotic. No clubbing. Good capillary refill. SKIN: No skin breakdown. Assessment/Plan: Final diagnosis Paroxysmal atrial fibrillation on Eliquis POA improved Persistent dyspnea on exertion POA Uncontrolled diabetes POA Acute on chronic kidney disease POA Normocytic normochromic anemia POA Obesity POA Hypertension POA Hyperlipidemia POA Obstructive sleep apnea noncompliant with CPAP therapy POA Discharge Instructions: The patient to be discharged home, to follow with primary care physician and electric meter installer as an outpatient, advised to return to hospital if his condition changes. The patient agreed with the plan and understood the information provided. Home Medications: Reported Medications Hydrocodone/Acetaminophen (Hydrocodon-Acetaminophn 10-325) 10 Mg-325 Mg Tablet, 1 TAB PO QIDP PRN for pain for 5 Days, #20 TAB 0 Refills 12/29/24 Lisinopril (Lisinopril) 40 Mg Tablet, 1 TAB PO DAILY for 30 Days, #30 TAB 0 Refills 12/29/24 Atorvastatin Calcium (Atorvastatin Calcium) 40 Mg Tablet, 1 TAB PO DAILY for 30 Days, #30 TAB 0 Refills 12/29/24 Bumetanide (Bumetanide) 1 Mg Tablet, 1 TAB PO DAILY for 30 Days, #30 TAB 0 Refills 12/29/24 Cholecalciferol (Vitamin D3) (Vitamin D3) 50 Mcg (2000 Unit) Tablet, 1 TAB PO DAILY for 30 Days, #30 TAB 0 Refills 12/29/24 Apixaban (Eliquis) 5 Mg Tablet, 1 TAB PO BID for 30 Days, #60 TAB 0 Refills 12/29/24 Clopidogrel Bisulfate (Clopidogrel) 75 Mg Tablet, 1 TAB PO DAILY for 30 Days, #30 TAB 0 Refills 12/29/24 Dapagliflozin Propanediol (Farxiga) 10 Mg Tablet, 1 TAB PO DAILY for 30 Days, #30 TAB 0 Refills 12/29/24 Meloxicam (Meloxicam) 15 Mg Tablet, 1 TAB PO DAILY for 30 Days, #30 TAB 0 Refills 12/29/24 Nifedipine (Nifedipine ER) 60 Mg Tab.er.24, 1 TAB PO DAILY for 30 Days, #30 TAB 0 Refills 12/29/24 Loratadine (Loratadine) 10 Mg Tablet, 1 TAB PO DAILY for allergy symptoms for 30 Days, #30 TAB 0 Refills 12/29/24 Metoprolol Tartrate (Metoprolol Tartrate) 50 Mg Tablet, 1 TAB PO BID for 30 Days, #60 TAB 0 Refills 12/29/24 Metformin HCl (Metformin HCl) 1,000 Mg Tablet, 1 TAB PO BID for 30 Days, #60 TAB 0 Refills 12/29/24 Gabapentin (Gabapentin) 300 Mg/6 Ml (6 Ml) Solution, 300 MG PO BID, ML 12/29/24 Time spent arranging discharge: 31-60 minutes CLAU COLES MD Dec 30, 2024 13:46
--- NOTE | 2024-12-30 16:40 | NUR ---
DISCHARGE NOTE IV and ID bands removed. Discharge instructions, medications, and follow up appointments reviewed with patient and sister at bedside. Personal belongings packed and taken by sister. Patient taken down to 1st floor via wheelchair to personal vehicle, sister will drive patient home.
== END 2024-12-30 16:40 | disposition home or self-care (01) ==
LOC: EDH 18:37 → EDHIP 12-29 02:50 → INTOOBSV 12-29 02:50 → UNDOADMOB 12-29 02:50 → EDHIP 12-29 10:00 → 4CH 12-29 10:00 → EDHIP 12-30 12:00
PROVIDERS: ADMIT Internal Medicine; ATTEND Internal Medicine
DX: I48.0 Paroxysmal atrial fibrillation (principal); Z20.822 Contact with and (suspected) exposure to COVID-19; I12.9 Hypertensive chronic kidney disease with stage 1 through stage 4 chronic kidney disease, or unspecified chronic kidney disease; N18.9 Chronic kidney disease, unspecified; E11.22 Type 2 diabetes mellitus with diabetic chronic kidney disease; N17.9 Acute kidney failure, unspecified; D63.1 Anemia in chronic kidney disease; I25.10 Atherosclerotic heart disease of native coronary artery without angina pectoris; G47.33 Obstructive sleep apnea (adult) (pediatric); E78.5 Hyperlipidemia, unspecified; R60.9 Edema, unspecified; Z86.73 Personal history of transient ischemic attack (TIA), and cerebral infarction without residual deficits; Z87.442 Personal history of urinary calculi; Z91.199 Patient's noncompliance with other medical treatment and regimen due to unspecified reason; Z95.1 Presence of aortocoronary bypass graft; Z79.899 Other long term (current) drug therapy; Z79.01 Long term (current) use of anticoagulants
CPT/HCPCS: 99285; 71045; 87426; 82550; 83735 ×2; 84484 ×2; 80048; 83880; 83690; 85025 ×2; 85610; 85730; 87804 ×2; 81001; 36415 ×2; 74018; 93005; 93306; 93970; 84443; 80053; 85378; 85651; 82948 ×7; 93356; 94640; J1815 ×4; G0378; 94664